=== PATIENT | male | born 1965 | race Caucasian/White ===

== ENCOUNTER → 2018-07-21 08:58 | Outpatient (CLI) | payer OTHER, MEDICAID, SELFPAY | PROVIDERS: PCP Family Medicine; Visit Provider Family Medicine | DX: R05 Cough (principal) ==

== ENCOUNTER → 2018-07-21 09:06 | Outpatient (CLI) | payer OTHER, MEDICAID, SELFPAY ==
--- NOTE | 2018-07-21 | DI.RAD.S_ITS ---
PROCEDURE: XR CHEST 2V INDICATIONS: COUGH TECHNIQUE: 2 views of the chest were acquired. COMPARISON: None. FINDINGS: Surgical changes and devices: None. Lungs and pleura: Lungs are clear. No pleural effusions or pneumothorax. Mediastinum: Mediastinal contours are normal. Heart size is normal. Bones and chest wall: No suspicious bony abnormalities. Soft tissues appear unremarkable. IMPRESSION: No acute disease Dictated by: Gaurang Segura M.D. on 07/21/2018 at 11:07 Approved by: Gaurang Segrua M.D. on 07/21/2018 at 11:09
== END ==
PROVIDERS: PCP Family Medicine; Visit Provider Family Medicine
DX: R05 Cough (principal)
CPT/HCPCS: 71046

== ENCOUNTER → 2018-10-23 14:10 | Outpatient (CLI) | payer OTHER, MEDICAID, SELFPAY ==
--- NOTE | 2018-10-23 | DI.CT.S_ITS ---
PROCEDURE: CT CHEST WO CON INDICATIONS: Centrilobular emphysema TECHNIQUE: Noncontrast 5 mm thick sections acquired from the pulmonary apices to the posterior costophrenic angles. 1 mm lung window, 5 mm thick coronal and sagittal and 7 mm axial MIP reformats were then acquired. For radiation dose reduction, the following was used: automated exposure control, adjustment of mA and/or kV according to patient size. COMPARISON: None. FINDINGS: Image quality: Excellent. Lungs and pleura: No acute air consolidative opacities. Bilateral lower lobe scarring/atelectasis. There is bilateral upper lobe centrilobular and paraseptal emphysema No pleural effusions or pneumothorax. Central and peripheral airways are patent and normal in caliber. Mediastinum: Heart size is normal. No pericardial effusion. No mediastinal adenopathy by size criteria. Thoracic aorta and central pulmonary arteries are normal in size. Esophagus is normal in caliber. No hiatal hernia. Bones and chest wall: No suspicious bony lesions. No vertebral body compression fractures. No axillary or supraclavicular adenopathy by size criteria. Thyroid gland negative. Abdomen: Visualized upper abdominal solid organs and bowel loops appear normal in the absence of contrast. IMPRESSION: Severe emphysema. Bilateral lower lobe scarring/atelectasis No acute disease. Dictated by: Gaurang Segura M.D. on 10/23/2018 at 17:15 Approved by: Gaurang Segura M.D. on 10/23/2018 at 17:19
== END ==
PROVIDERS: PCP Family Medicine; Visit Provider Family Medicine
DX: J43.2 Centrilobular emphysema (principal)
CPT/HCPCS: 71250

== ENCOUNTER → 2019-01-22 13:06 | Outpatient (CLI) | payer OTHER, MEDICAID, SELFPAY ==
--- NOTE | 2019-01-22 | DI.MRI.S_ITS ---
PROCEDURE: MR STROKE Pre- and post-contrast brain MRI, non-contrast brain MR angiogram, pre- and postcontrast neck MR angiogram INDICATIONS: NAUSEA, HEREDITARY ATAXIA TECHNIQUE: Brain: Noncontrast axial T1 spin echo, axial T2 fast spin echo, sagittal and axial FLAIR, coronal T2 fast spin echo, axial gradient echo, axial diffusion and ADC through the brain. After the administration of contrast, axial 3D VIBE of the cranial vasculature and brain. Brain MRA: Non-contrast 3-D time of flight MR angiogram, with multiple ttsxlpu-dmaldecqk-ggdebvjywg (MIP) reformats performed. Neck MRA: Axial and sagittal TruFISP through the neck. Coronal dynamic MR angiogram during administration of contrast in the arterial and venous phases, with 3-dimenstional dntlujk-oknvrekvl-rsbulqvecx (MIP) reformats constructed from subtraction images. COMPARISON: None. FINDINGS: Image quality: Excellent. BRAIN: CSF spaces: Ventricles are normal in size and shape. Basal cisterns are patent. No extra-axial fluid collections. Brain: No intracranial bleeds or mass effects. Mantilla-white matter interface is normal. Scattered foci of T2 hyperintensity can be seen within the periventricular and the deep white matter. Diffusion weighted images show no acute ischemic insults. Brainstem appears normal. Normal intravascular flow voids are present. No abnormal intracranial enhancement. Skull and face: Calvarial marrow signal is normal. Orbits appear normal. Sinuses: There is a mucus retention cyst seen involving the lateral aspect of the left inferior maxillary sinus. Sinuses and mastoids are otherwise clear. BRAIN MR ANGIOGRAM: Anterior circulation: Intracranial internal carotid arteries are normal in size and enhancement. The flow within the paired anterior cerebral arteries is normal and symmetric. Incidental note is made of an accessory anterior cerebral artery branch, which arises from the anterior communicating artery. The flow within the middle cerebral arteries is normal and symmetric. The anterior communicating artery is seen. No stenoses, occlusions, or aneurysms. Posterior circulation: The visualized portions of the vertebral arteries demonstrate normal caliber, and join to form a normal appearing basilar artery. The flow within the posterior cerebral arteries is normal and symmetric. No stenoses, occlusions, or aneurysms. NECK MR ANGIOGRAM: Carotids: Great vessels demonstrate a conventional anatomy as they arise from the aortic arch. The origins of the common carotid arteries appear patent. The calibers and courses of both common carotid arteries are normal. The bifurcation regions appear normal bilaterally. The internal carotid arteries demonstrate normal caliber. Mild tortuosity is seen of the internal carotid arteries, left more prominent than right. Posterior circulation: The origins of the vertebral arteries appear patent. More superior portions of both vertebral arteries demonstrate normal course and caliber, and join to form a normal appearing basilar artery. Miscellaneous: Subclavian arteries appear patent. Pre-contrast images through the neck show no soft tissue abnormalities. IMPRESSION: BRAIN MRI: No findings of acute or subacute infarction can be seen. Premature chronic small vessel ischemic change. No masses or abnormal enhancement can be seen. BRAIN MR ANGIOGRAM: No significant intracranial arterial abnormality is seen. NECK MR ANGIOGRAM: Within the arteries of the neck, no hemodynamically significant stenosis can be seen. Dictated by: Augustus Bethea M.D. on 01/22/2019 at 13:28 Approved by: Augustus Bethea M.D. on 01/22/2019 at 13:31
== END ==
PROVIDERS: PCP Family Medicine; Visit Provider Family Medicine
DX: G11.9 Hereditary ataxia, unspecified (principal); R11.0 Nausea
CPT/HCPCS: 70548; 70553; A9579

== ENCOUNTER → 2020-09-18 12:33 | Outpatient (CLI) | payer OTHER, MEDICAID, SELFPAY ==
[2020-09-18 20:33] LABS: COVID19 - ORCAS (NP or Nasal) Negative (Negative)
== END ==
PROVIDERS: PCP Family Medicine; Visit Provider Family Medicine
DX: Z20.822 Contact with and (suspected) exposure to COVID-19 (principal)
CPT/HCPCS: U0003

== ENCOUNTER → 2020-10-16 14:47 | Outpatient (CLI) | payer OTHER, MEDICAID, SELFPAY ==
[2020-10-16 20:08] LABS: COVID19 - ORCAS (NP or Nasal) Negative (Negative)
== END ==
PROVIDERS: PCP Family Medicine; Referring Provider Physician Assistant; Visit Provider Physician Assistant
DX: Z20.822 Contact with and (suspected) exposure to COVID-19 (principal)
CPT/HCPCS: C9803; U0003

== ENCOUNTER → 2020-12-06 10:18 | Outpatient (CLI) | payer OTHER, MEDICAID, SELFPAY ==
[2020-12-06 21:08] LABS: COVID19 - ORCAS (NP or Nasal) Negative (Negative)
== END ==
PROVIDERS: PCP Family Medicine; Referring Provider Physician Assistant Medical; Visit Provider Physician Assistant Medical
DX: Z20.822 Contact with and (suspected) exposure to COVID-19 (principal)
CPT/HCPCS: U0003

== ENCOUNTER → 2021-03-20 11:33 | Outpatient (CLI) | payer OTHER, MEDICAID, SELFPAY ==
[2021-03-20 19:01] LABS: Add Manual Diff / Slide Review NO; Basophils Absolute Auto 100 /uL (0-100); Basophils Percent Auto 0.8 % (0-2); Eosinophils Absolute Auto 100 /uL (0-450); Eosinophils Percent Auto 0.8 % (2-4); Hematocrit 45.5 % (41-53); Hemoglobin 15.7 g/dL (13.5-17.5); Lymphocytes Absolute Auto 2600 /uL (1100-4500); Lymphocytes Percent Auto 28.6 % (25-40); Mean Corpuscular HGB Conc 34.4 % (30-36); Mean Corpuscular Hemoglobin 31.8 PG (26-34); Mean Corpuscular Volume 92.4 fL (80-100); Monocytes Absolute Auto 600 /uL (0-900); Monocytes Percent Auto 6.3 % (3-14); Neutrophils Absolute Auto 5700 /uL (1500-7000); Neutrophils Percent Auto 63.5 % (50-75); Platelet Count 254 X10^3/uL (150-400); Red Blood Cell Count 4.93 X10^6/uL (4.5-5.9); Red Cell Distribution Width 12.7 % (11.6-14.8)
[2021-03-20 19:25] LABS: Alanine Aminotransferase 30 IU/L (<50); Albumin 4.5 g/dL (3.5-5.0); Albumin Globulin Ratio 1.6 (1.0-2.8); Alkaline Phosphatase 63 U/L (38-126); Aspartate Aminotransferase 23 IU/L (17-59); BUN Creatinine Ratio 15.3 (6-22); Bilirubin Total 0.6 mg/dL (0.2-1.3); Blood Urea Nitrogen 15 mg/dL (9-20); Calcium 9.9 mg/dL (8.4-10.2); Carbon Dioxide 28 mmol/L (22-32); Chloride 104 mmol/L (98-107); Cholesterol 272 mg/dL (140-199); Estimated Glomerular Filt Rate > 60.0 mL/min (>60); Globulin 2.9 g/dL (1.7-4.1); Glucose 101 mg/dL (70-100); HDL Cholesterol 40 mg/dL (40-60); HEMOLYSIS < 15 (0-50); LDL Cholesterol Calculated 199 mg/dL (<100); Potassium 4.4 mmol/L (3.4-5.1); Sodium 138 mmol/L (137-145); Total Protein 7.4 g/dL (6.3-8.2); Triglycerides 165 mg/dL (35-150)
[2021-03-20 19:55] LABS: Prostate Specific Antigen Scrn 0.915 ng/mL (0.1-4.0)
== END ==
PROVIDERS: Visit Provider Physician Assistant
DX: E78.5 Hyperlipidemia, unspecified (principal); H61.20 Impacted cerumen, unspecified ear; H61.92 Disorder of left external ear, unspecified; I25.2 Old myocardial infarction; Z00.01 Encounter for general adult medical examination with abnormal findings; Z12.11 Encounter for screening for malignant neoplasm of colon; Z12.5 Encounter for screening for malignant neoplasm of prostate; Z79.899 Other long term (current) drug therapy
CPT/HCPCS: 80053; 80061; 85025; G0103

== ENCOUNTER → 2022-01-31 09:28 | Outpatient (CLI) | payer OTHER, MEDICAID, SELFPAY ==
[2022-01-31 19:03] LABS: Alanine Aminotransferase 35 IU/L (<50); Albumin 4.2 g/dL (3.5-5.0); Albumin Globulin Ratio 1.5 (1.0-2.8); Alkaline Phosphatase 72 U/L (38-126); Aspartate Aminotransferase 28 IU/L (17-59); Bilirubin Total 0.5 mg/dL (0.2-1.3); Blood Urea Nitrogen 15 mg/dL (9-20); Calcium 9.1 mg/dL (8.4-10.2); Carbon Dioxide 29 mmol/L (22-32); Chloride 103 mmol/L (98-107); Cholesterol 187 mg/dL (140-199); Estimated Glomerular Filt Rate > 60 mL/min (>60); Globulin 2.8 g/dL (1.7-4.1); Glucose 89 mg/dL (70-100); HDL Cholesterol 42 mg/dL (40-60); HEMOLYSIS < 15 (0-50); LDL Cholesterol Calculated 126 mg/dL (<100); Potassium 4.2 mmol/L (3.4-5.1); Sodium 138 mmol/L (137-145); Triglycerides 93 mg/dL (35-150)
== END ==
PROVIDERS: PCP Physician Assistant; Visit Provider Physician Assistant
DX: E78.5 Hyperlipidemia, unspecified (principal)
CPT/HCPCS: 80053; 80061

== ENCOUNTER → 2022-02-27 13:22 | Outpatient (CLI) | payer OTHER, MEDICAID, SELFPAY ==
--- NOTE | 2022-02-27 13:23 | DI.US.S_ITS ---
PROCEDURE: US CAROTID DOPPLER BI INDICATIONS: CALCIFICATIONS ON 12/26/21 C SPINE X-RAY TECHNIQUE: Color and pulse Doppler interrogation was performed of both carotid systems, with image documentation and velocity measurements. COMPARISON: None. FINDINGS: Stenosis calculations are based on SRU (Society of Radiologists in Ultrasound) criteria. Right side: Brachial blood pressure: 127/80 mm Hg. Common carotid artery peak systolic velocity: 125 cm/sec. Internal carotid artery peak systolic velocity: 87 cm/sec. Internal carotid artery end diastolic velocity: 43 cm/sec. External carotid artery peak systolic velocity: 82 cm/sec. ICA/CCA peak systolic ratio: 0.7 . Mantilla scale imaging description: Mild atheromatous plaque at the carotid bifurcation Percent internal carotid artery stenosis: Less than 50% stenosis. Vertebral artery: Flow direction is antegrade. Left side: Brachial blood pressure: 135/87 mm Hg. Common carotid artery peak systolic velocity: 120 cm/sec. Internal carotid artery peak systolic velocity: 73 cm/sec. Internal carotid artery end diastolic velocity: 32 cm/sec. External carotid artery peak systolic velocity: 74 cm/sec. ICA/CCA peak systolic ratio: 0.6 . Mantilla scale imaging description: No atheromatous plaque or calcification Percent internal carotid artery stenosis: No stenosis of the internal carotid artery. Vertebral artery: Flow direction is antegrade. IMPRESSION: Less than 50% stenosis of the right internal carotid artery. No sonographic evidence for stenosis of the left internal carotid artery. Dictated by: Linsey Altamirano M.D. on 02/27/2022 at 14:13 Approved by: Linsey Altamirano M.D. on 02/27/2022 at 14:14
== END ==
PROVIDERS: PCP Physician Assistant; Referring Provider Physician Assistant; Visit Provider Physician Assistant
DX: Z13.6 Encounter for screening for cardiovascular disorders (principal); I25.2 Old myocardial infarction; I65.21 Occlusion and stenosis of right carotid artery
CPT/HCPCS: 93880

== ENCOUNTER → 2022-03-05 10:42 | Outpatient (CLI) | payer OTHER, MEDICAID, SELFPAY ==
[2022-03-05 11:13] LABS: COVID19 -Nasal RAPID Negative (Negative)
== END ==
PROVIDERS: PCP Physician Assistant; Visit Provider Surgery
DX: Z01.812 Encounter for preprocedural laboratory examination (principal); Z20.822 Contact with and (suspected) exposure to COVID-19
CPT/HCPCS: 87635

== ENCOUNTER 2022-03-05 10:44 | Day surgery (SDC) | payer OTHER, MEDICAID, SELFPAY ==
--- NOTE | 2022-03-05 | PATH_ITS ---
[facility] Accession Number: [id number] . 01 Material submitted: . rectum - RECTUM . 01 Diagnosis: Rectum, Biopsy: Hyperplastic polyp. HARISH 03/07/2022 1131 Local . 01 Electronically signed: . Thu Estrada MD, Pathologist NPI- [id number] . 01 Gross description: . RECTUM: Received in formalin are 2 fragment(s) of li, soft tissue measuring 0.3 x 0.2 x 0.2 cm to 0.2 x 0.2 x 0.1 cm submitted entirely in 1 cassette(s) /CPE 03/06/2022 0859 Local . 01 Pathologist provided ICD-10: K62.1 . 01 CPT . 089034 Specimen Comment: A courtesy copy of this report has been sent to [phone] Performed at: 01 [facility] [address] [place] [address], [place], [place] [id number] MD Tee Reyna MD Phone: [phone]
[2022-03-05 11:15] VITALS: BP 118/74; PULSE 61; RESP 16; TEMP 36.4; O2SAT 100; BMI 28.1
[2022-03-05] MEDS: LACTATED RINGERS 1,000 ML 200 ML IV (11:28)
--- NOTE | 2022-03-05 12:31 | PM.HP.1 ---
History of Present Illness History of Present Illness Date Patient Seen: 03/05/22 Time Patient Seen: 12:32 Chief complaint: SDC Narrative: The patient presents for colorectal screening. They have never had any previous examination for such. No personal or family history of colon cancer. On further history denies any recent gastrointestinal symptoms. No nausea, vomiting, abdominal pain, loss of appetite, unexplained weight loss, change in bowel habits, or blood per rectum. Patient History Medical History Abnormal laboratory test Alcoholism in recovery Body mass index (BMI) exceeds 25 COPD (chronic obstructive pulmonary disease) (~2018) Cough COVID-19 (~01/2019) Encounter for screening for colorectal malignant neoplasm Encounter for tobacco use cessation counseling H/O myocardial perfusion scan (~01/06/14) Pre-procedural examination Routine health maintenance Surgical History Anesthesia History of coronary artery stent placement (~2019) History of herniorrhaphy (~2006) History of rhinoplasty (~1998) Family & Social History Family History Father History of heart disease Mother Multiple sclerosis Grandmother Congestive heart failure Grandfather History of heart disease Social History: household members none Tobacco & Substance use: Smoking Status Current some day smoker alcohol intake never Substance Use Type does not use Meds Home Medications and Allergies Home Medications Medication Instructions Recorded Confirmed Type aspirin 81 mg tablet,delayed 81 mg PO DAILY 08/02/20 03/05/22 History release levalbuterol tartrate 45 2 puff inhalation Q4-6H PRN 08/02/20 03/05/22 History mcg/actuation aerosol inhaler Bronchospasm (Xopenex HFA) nitroglycerin 0.4 mg sublingual 0.4 mg sublingual Q5-15M PRN Chest 08/02/20 03/05/22 History tablet Pain atorvastatin 10 mg tablet 10 mg PO BEDTIME #90 tabs 02/04/22 03/05/22 Rx Allergies Allergy/AdvReac Type Severity Reaction Status Date / Time No Known Drug Allergies Allergy Verified 03/05/22 11:12 Exam Vital Signs (past 8 hours): - 03/05/22 11:15 Temperature 97.5 F L Pulse Rate 61 Respiratory Rate 16 Blood Pressure 118/74 Pulse Oximetry 100 Oxygen Delivery Method Room Air Oxygen Delivery Method Room Air Narrative Exam Narrative: General adult male alert oriented no acute distress Abdomen soft nontender nondistended Assessment & Plan Assessment & Plan narrative: The patient requires colorectal screening and colonoscopy is recommended. Technical details were discussed. Risks, benefits, alternatives explained. Risks including but not limited to myocardial infarction, aspiration, bleeding, pain, missed lesion, incomplete examination, need for further radiographic studies, colonic perforation, and need for major abdominal surgery were discussed. All questions were answered to their satisfaction, and they are in agreement with this plan. Time Spent With Patient Critical Care time: I spent a total of [] minutes of critical care time on this patient's care today; this time is exclusive of procedural time.
--- NOTE | 2022-03-05 12:53 | PM.OP.COLON ---
Operative Date/Time/Diagnoses Date of procedure: 03/05/22 Time of procedure: 12:53 Pre-op diagnosis: Screening colonoscopy Post-op diagnosis: same Procedure & Clinicians Study performed: Colonoscopy Same procedure as scheduled: Yes Indications: Colorectal screening Surgeon: Quincy No Procedure Notes Procedure in detail: The history and physical was performed/updated and the patient is ASA class is 3. The procedure was discussed in detail with the patient. Potential risks complications including infection, bleeding, missed diagnosis, perforation, need for surgery, and were explained. Their questions were answered and informed consent was obtained. Patient was brought to the procedure room and placed standard monitoring equipment. The patient's vital signs were monitored continuously throughout the entire procedure. Prior to starting time-out was performed. The patient was placed in the left lateral recumbent position. Procedural sedation was administered by anesthesia. Examination began with a thorough inspection of the perianal area there was no evidence of fissures, fistulae, external hemorrhoids or cutaneous malignancy. The colonoscopy scope was then placed into the anal canal and was advanced to the cecum, which was identified by the ileocecal valve, the appendiceal orifice and the confluence of the taenia. The scope was then slowly withdrawn examining colon thoroughly in all directions, irrigating it of any residual stool. FINDINGS 1. Rectum-3 mm polyp removed with biopsy forceps 2. No masses or inflammation The patient tolerated the procedure well. They will be discharged once criteria are met. The prep was of good/excellent quality. The withdrawl time was 6 minutes. Specimen(s): other (Rectal polyp) Complications: none Impression: Colonic polyp Post-procedure Recommendations: High fiber diet Plan for aftercare: Follow-up dependent on pathology finding Disposition: same day surgery
[2022-03-05 12:55] VITALS: BP 152/75; PULSE 61; RESP 18; TEMP 36.8; O2SAT 98
[2022-03-05 13:06] VITALS: BP 110/75; PULSE 60; RESP 16; TEMP 36.8; O2SAT 98
[2022-03-05 13:16] VITALS: BP 124/75; PULSE 62; RESP 12; TEMP 36.3; O2SAT 97
== END 2022-03-05 13:30 | disposition home or self-care (01) ==
PROVIDERS: PCP Physician Assistant; Referring Provider Surgery; Visit Provider Surgery
PROC: 0DJD8ZZ Inspection of Lower Intestinal Tract, Via Natural or Artificial Opening Endoscopic (ICD-10-PCS; CPT 45378; principal; 2022-03-05 11:45)
DX: Z12.11 Encounter for screening for malignant neoplasm of colon (principal); J44.9 Chronic obstructive pulmonary disease, unspecified; K62.1 Rectal polyp; Z01.812 Encounter for preprocedural laboratory examination; Z20.822 Contact with and (suspected) exposure to COVID-19
CPT/HCPCS: 45380; 87635; C9803; J2704

== ENCOUNTER → 2022-04-17 09:42 | Outpatient (CLI) | payer OTHER, MEDICAID, SELFPAY ==
[2022-04-17 19:44] LABS: Add Manual Diff / Slide Review NO; Alanine Aminotransferase 31 IU/L (<50); Albumin 4.3 g/dL (3.5-5.0); Albumin Globulin Ratio 1.5 (1.0-2.8); Alkaline Phosphatase 66 U/L (38-126); Aspartate Aminotransferase 26 IU/L (17-59); BUN Creatinine Ratio 21.7 (6-22); Basophils Absolute Auto 100 /uL (0-100); Basophils Percent Auto 0.6 % (0-2); Bilirubin Total 0.4 mg/dL (0.2-1.3); Blood Urea Nitrogen 20 mg/dL (9-20); Calcium 9.3 mg/dL (8.4-10.2); Carbon Dioxide 25 mmol/L (22-32); Chloride 104 mmol/L (98-107); Cholesterol 161 mg/dL (140-199); Eosinophils Absolute Auto 200 /uL (0-450); Eosinophils Percent Auto 1.6 % (2-4); Estimated Glomerular Filt Rate > 60 mL/min (>60); Globulin 2.8 g/dL (1.7-4.1); Glucose 93 mg/dL (70-100); HDL Cholesterol 35 mg/dL (40-60); HEMOLYSIS < 15 (0-50); Hematocrit 47.2 % (41-53); LDL Cholesterol Calculated 104 mg/dL (<100); Lymphocytes Absolute Auto 3900 /uL (1100-4500); Mean Corpuscular HGB Conc 33.9 % (30-36); Mean Corpuscular Hemoglobin 31.4 PG (26-34); Mean Corpuscular Volume 92.6 fL (80-100); Monocytes Absolute Auto 700 /uL (0-900); Monocytes Percent Auto 7.3 % (3-14); Neutrophils Absolute Auto 5200 /uL (1500-7000); Neutrophils Percent Auto 51.5 % (50-75); Platelet Count 251 X10^3/uL (150-400); Potassium 4.4 mmol/L (3.4-5.1); Sodium 136 mmol/L (137-145); Total Protein 7.1 g/dL (6.3-8.2); Triglycerides 112 mg/dL (35-150)
== END ==
PROVIDERS: PCP Physician Assistant; Visit Provider Physician Assistant
DX: E78.5 Hyperlipidemia, unspecified (principal); M79.10 Myalgia, unspecified site; R53.83 Other fatigue; K21.00 Gastro-esophageal reflux disease with esophagitis, without bleeding; R53.82 Chronic fatigue, unspecified; Z79.899 Other long term (current) drug therapy
CPT/HCPCS: 80053; 80061; 84443; 85025

== ENCOUNTER → 2022-07-01 11:23 | Outpatient (CLI) | payer OTHER, MEDICAID, SELFPAY ==
[2022-07-01 19:32] LABS: Add Manual Diff / Slide Review NO; Basophils Absolute Auto 100 /uL (0-100); Basophils Percent Auto 0.9 % (0-2); Eosinophils Absolute Auto 200 /uL (0-450); Eosinophils Percent Auto 1.7 % (2-4); Hematocrit 44.5 % (41-53); Hemoglobin 15.2 g/dL (13.5-17.5); Lymphocytes Absolute Auto 3700 /uL (1100-4500); Lymphocytes Percent Auto 41.2 % (25-40); Mean Corpuscular HGB Conc 34.1 % (30-36); Mean Corpuscular Hemoglobin 31.2 PG (26-34); Mean Corpuscular Volume 91.5 fL (80-100); Monocytes Absolute Auto 700 /uL (0-900); Monocytes Percent Auto 7.5 % (3-14); Neutrophils Absolute Auto 4400 /uL (1500-7000); Neutrophils Percent Auto 48.7 % (50-75); Platelet Count 258 X10^3/uL (150-400); Red Blood Cell Count 4.86 X10^6/uL (4.5-5.9); Red Cell Distribution Width 13.1 % (11.6-14.8)
[2022-07-01 19:41] LABS: Alanine Aminotransferase 37 IU/L (<50); Albumin 4.5 g/dL (3.5-5.0); Albumin Globulin Ratio 1.6 (1.0-2.8); Alkaline Phosphatase 87 U/L (38-126); Aspartate Aminotransferase 28 IU/L (17-59); BUN Creatinine Ratio 19.8 (6-22); Bilirubin Total 0.3 mg/dL (0.2-1.3); Blood Urea Nitrogen 20 mg/dL (9-20); Calcium 9.4 mg/dL (8.4-10.2); Carbon Dioxide 25 mmol/L (22-32); Chloride 104 mmol/L (98-107); Estimated Glomerular Filt Rate > 60 mL/min (>60); Globulin 2.8 g/dL (1.7-4.1); Glucose 91 mg/dL (70-100); HEMOLYSIS < 15 (0-50); Potassium 4.5 mmol/L (3.4-5.1); Sodium 139 mmol/L (137-145); Total Protein 7.3 g/dL (6.3-8.2)
[2022-07-01 19:50] LABS: NT-proBNP (BNP-Adult 18+) 23 pg/mL (<125)
[2022-07-01 19:56] LABS: Erythrocyte Sedimentation Rate 3 MM/HR (0-15)
== END ==
PROVIDERS: PCP Physician Assistant; Visit Provider Physician Assistant
DX: R60.9 Edema, unspecified (principal); R06.02 Shortness of breath; L29.9 Pruritus, unspecified; J44.9 Chronic obstructive pulmonary disease, unspecified; E78.2 Mixed hyperlipidemia; Z79.899 Other long term (current) drug therapy
CPT/HCPCS: 80053; 83880; 85025; 85651

== ENCOUNTER → 2022-07-18 10:27 | Outpatient (CLI) | payer OTHER, MEDICAID, SELFPAY ==
[2022-07-18 19:31] LABS: Alanine Aminotransferase 33 IU/L (<50); Albumin 4.2 g/dL (3.5-5.0); Albumin Globulin Ratio 1.5 (1.0-2.8); Alkaline Phosphatase 69 U/L (38-126); Aspartate Aminotransferase 27 IU/L (17-59); BUN Creatinine Ratio 13.1 (6-22); Bilirubin Total 0.7 mg/dL (0.2-1.3); Blood Urea Nitrogen 14 mg/dL (9-20); Calcium 9.1 mg/dL (8.4-10.2); Carbon Dioxide 26 mmol/L (22-32); Chloride 104 mmol/L (98-107); Cholesterol 250 mg/dL (140-199); Estimated Glomerular Filt Rate > 60 mL/min (>60); Globulin 2.8 g/dL (1.7-4.1); Glucose 89 mg/dL (70-100); HDL Cholesterol 35 mg/dL (40-60); HEMOLYSIS < 15 (0-50); LDL Cholesterol Calculated 166 mg/dL (<100); Potassium 4.7 mmol/L (3.4-5.1); Sodium 137 mmol/L (137-145); Triglycerides 245 mg/dL (35-150)
== END ==
PROVIDERS: PCP Physician Assistant; Visit Provider Physician Assistant
DX: E78.2 Mixed hyperlipidemia (principal); Z79.899 Other long term (current) drug therapy; J44.9 Chronic obstructive pulmonary disease, unspecified; L29.9 Pruritus, unspecified; R06.02 Shortness of breath; R60.9 Edema, unspecified
CPT/HCPCS: 80053; 80061

== ENCOUNTER → 2022-07-24 09:01 | Outpatient (CLI) | payer OTHER, MEDICAID, SELFPAY ==
[2022-07-24 20:18] LABS: Add Manual Diff / Slide Review NO; Basophils Absolute Auto 0 /uL (0-100); Basophils Percent Auto 0.5 % (0-2); Eosinophils Absolute Auto 100 /uL (0-450); Eosinophils Percent Auto 1.5 % (2-4); HEMOLYSIS < 15 (0-50); Hematocrit 44.8 % (41-53); Hemoglobin 15.2 g/dL (13.5-17.5); Iron 150 ug/dL (49-181); Lymphocytes Absolute Auto 4100 /uL (1100-4500); Lymphocytes Percent Auto 42.9 % (25-40); Mean Corpuscular HGB Conc 33.9 % (30-36); Mean Corpuscular Hemoglobin 31.3 PG (26-34); Mean Corpuscular Volume 92.4 fL (80-100); Monocytes Absolute Auto 600 /uL (0-900); Monocytes Percent Auto 6.7 % (3-14); Neutrophils Absolute Auto 4600 /uL (1500-7000); Neutrophils Percent Auto 48.4 % (50-75); Platelet Count 267 X10^3/uL (150-400); Red Blood Cell Count 4.85 X10^6/uL (4.5-5.9); Red Cell Distribution Width 13.2 % (11.6-14.8); White Blood Cell Count 9.5 X10^3/uL (4.5-11.0)
[2022-07-24 20:26] LABS: Alanine Aminotransferase 39 IU/L (<50); Albumin 4.2 g/dL (3.5-5.0); Albumin Globulin Ratio 1.5 (1.0-2.8); Alkaline Phosphatase 72 U/L (38-126); Aspartate Aminotransferase 27 IU/L (17-59); Bilirubin Total 0.4 mg/dL (0.2-1.3); Blood Urea Nitrogen 14 mg/dL (9-20); Calcium 9.2 mg/dL (8.4-10.2); Carbon Dioxide 26 mmol/L (22-32); Chloride 104 mmol/L (98-107); Estimated Glomerular Filt Rate > 60 mL/min (>60); Globulin 2.8 g/dL (1.7-4.1); Glucose 94 mg/dL (70-100); HEMOLYSIS < 15 (0-50); Potassium 4.3 mmol/L (3.4-5.1); Sodium 138 mmol/L (137-145)
[2022-07-24 20:29] LABS: Percent Iron Saturation 44 % (20-50); Total Iron Binding Capacity 343 ug/dL (261-462); Transferrin 259 mg/dL (206-381)
[2022-07-24 20:30] LABS: Cholesterol 220 mg/dL (140-199); HDL Cholesterol 36 mg/dL (40-60); LDL Cholesterol Calculated 135 mg/dL (<100); Triglycerides 244 mg/dL (35-150)
[2022-07-24 20:42] LABS: Vitamin D 25 Hydroxy (D3) 18.2 ng/mL (30.0-100.0)
[2022-07-24 20:56] LABS: Ferritin 114 ng/mL (18-464)
[2022-07-24 21:27] LABS: Folate 5.6 ng/mL (2.76-20.0); Vitamin B12 397 pg/mL (239-931)
[2022-07-25 22:03] LABS: Hep C Virus Ab w/Reflex Quant NEGATIVE s/c (NEGATIVE)
== END ==
PROVIDERS: PCP Physician Assistant; Visit Provider Physician Assistant
DX: L29.9 Pruritus, unspecified (principal); E78.2 Mixed hyperlipidemia
CPT/HCPCS: 80053; 80061; 82306; 82607; 82728; 82746; 83540; 83550; 85025; 86803

== ENCOUNTER → 2022-08-20 13:04 | Outpatient (CLI) | payer OTHER, MEDICAID, SELFPAY ==
[2022-08-20 19:22] LABS: Alanine Aminotransferase 50 IU/L (<50); Albumin 4.4 g/dL (3.5-5.0); Albumin Globulin Ratio 1.6 (1.0-2.8); Alkaline Phosphatase 77 U/L (38-126); Aspartate Aminotransferase 31 IU/L (17-59); BUN Creatinine Ratio 17.9 (6-22); Bilirubin Total 0.3 mg/dL (0.2-1.3); Blood Urea Nitrogen 19 mg/dL (9-20); Calcium 9.5 mg/dL (8.4-10.2); Carbon Dioxide 25 mmol/L (22-32); Chloride 104 mmol/L (98-107); Estimated Glomerular Filt Rate > 60 mL/min (>60); Globulin 2.8 g/dL (1.7-4.1); Glucose 98 mg/dL (70-100); HEMOLYSIS < 15 (0-50); Potassium 4.6 mmol/L (3.4-5.1); Sodium 138 mmol/L (137-145); Total Protein 7.2 g/dL (6.3-8.2)
[2022-08-20 19:30] LABS: Free T3, Triiodothyronine Free 4.22 pg/mL (2.77-5.27)
[2022-08-20 19:44] LABS: Thyroid Stimulating Hormone 3.28 uIU/mL (0.47-4.68)
[2022-08-20 19:47] LABS: Prostate Specific Antigen Scrn 0.651 ng/mL (0.1-4.0)
[2022-08-20 19:50] LABS: Testosterone 222 ng/dL (71.8-623)
[2022-08-20 19:59] LABS: Erythrocyte Sedimentation Rate 5 MM/HR (0-15)
[2022-08-27 07:10] LABS: Percent Free Testosterone 1.73 % (1.50-4.20); Testosterone Free 5.07 ng/dL (5.00-21.00); Testosterone Total 293.2 ng/dL (264.0-916.0)
== END ==
PROVIDERS: Physician Assistant; PCP Physician Assistant; Visit Provider Physician Assistant
DX: R53.82 Chronic fatigue, unspecified (principal); Z12.5 Encounter for screening for malignant neoplasm of prostate; M79.10 Myalgia, unspecified site; R60.9 Edema, unspecified; E55.9 Vitamin D deficiency, unspecified
CPT/HCPCS: 80053; 82306; 84402; 84403; 84439; 84443; 84481; 85651; G0103

== ENCOUNTER → 2022-08-26 15:57 | Outpatient (CLI) | payer OTHER, MEDICAID, SELFPAY ==
[2022-08-26 17:47] LABS: Alanine Aminotransferase 43 IU/L (<50); Albumin 4.3 g/dL (3.5-5.0); Albumin Globulin Ratio 1.5 (1.0-2.8); Alkaline Phosphatase 62 U/L (38-126); Aspartate Aminotransferase 40 IU/L (17-59); Bilirubin Total 0.4 mg/dL (0.2-1.3); Bilirubin Unconjugated 0.2 mg/dL (0.0-1.1); Globulin 2.8 g/dL (1.7-4.1); HEMOLYSIS < 15 (0-50); Total Protein 7.1 g/dL (6.3-8.2)
[2022-08-26 17:57] LABS: NT-proBNP (BNP-Adult 18+) 61 pg/mL (<125)
== END ==
PROVIDERS: PCP Physician Assistant; Referring Provider Physician Assistant; Visit Provider Physician Assistant
DX: R60.9 Edema, unspecified (principal); R74.8 Abnormal levels of other serum enzymes
CPT/HCPCS: 36415; 80076; 83880

== ENCOUNTER → 2022-09-10 09:57 | Outpatient (CLI) | payer OTHER, MEDICAID, SELFPAY ==
[2022-09-10 11:07] LABS: Erythrocyte Sedimentation Rate 5 MM/HR (0-15)
[2022-09-10 11:08] LABS: Creatine Kinase 263 U/L (55-170)
[2022-09-10 11:24] LABS: Free T4, Direct Thyroxine 0.81 ng/dL (0.78-2.19)
[2022-09-10 11:35] LABS: Cortisol AM (Before 10AM) 6.25 ug/dL (4.46-22.7)
--- NOTE | 2022-09-10 11:36 | DI.CT.S_ITS ---
PROCEDURE: CT ABDOMEN WWO PELVIS W INDICATIONS: abdominal distension/bloating. fatigue. elevated liver enzym TECHNIQUE: After the administration of oral contrast, 5 mm thick sections acquired from the diaphragms to the iliac crests. After the administration of intravenous contrast, 5 mm thick sections acquired from the diaphragms to the symphysis. 5 mm thick coronal and sagittal reformats were acquired. For radiation dose reduction, the following was used: automated exposure control, adjustment of mA and/or kV according to patient size. COMPARISON: [facility], CT, CT CHEST WO CON, 10/23/2018, 14:11. FINDINGS: Image quality: Excellent. ABDOMEN: Lung bases: Lung bases are clear. Heart size is normal. Small hiatal hernia. Solid organs: Liver is normal in size and enhancement. Small benign cyst in the left lobe of the liver. Gallbladder is unremarkable. Biliary system is non-dilated. Pancreas enhances normally. Spleen is normal in size and enhancement. No adrenal nodules. Both kidneys are normal in size. No hydronephrosis or nephrolithiasis. Tiny benign cysts in the kidneys. Bowel and peritoneum: Stomach, small and large bowel loops are normal in caliber and wall thickness. Small duodenal diverticulum. The appendix is not dilated. No free fluid or air. Nodes and vessels: No retroperitoneal or mesenteric adenopathy by size criteria. Aortic ectasia. Aorta measures 2.5 cm. Miscellaneous: Tiny umbilical hernia. PELVIS: Genitourinary: Bladder wall thickness is normal. Miscellaneous: Possible small fat containing inguinal hernias. No adenopathy. Bones: No suspicious bony lesions. No vertebral body compression fractures. IMPRESSION: 1. New small hiatal hernia. 2. No bowel obstruction. No free fluid. 3. No mass or adenopathy. Dictated by: Eduardo Cole M.D. on 09/10/2022 at 16:08 Approved by: Eduardo Cole M.D. on 09/10/2022 at 16:16
[2022-09-10 11:38] LABS: TSH w/ Reflex to FT4 2.81 uIU/mL (0.47-4.68)
[2022-09-12 15:15] LABS: Albumin 3.7 g/dL (2.9-4.4); Alpha 1 Globulin 0.2 g/dL (0.0-0.4); Alpha 2 Globulin 0.7 g/dL (0.4-1.0); Protein, Total 6.5 g/dL (6.0-8.5)
[2022-09-13 10:09] LABS: Anti Mitochondrial ABY IGG <20.0 Units (0.0-20.0)
== END ==
PROVIDERS: Physician Assistant; PCP Physician Assistant; Referring Provider Physician Assistant; Visit Provider Physician Assistant
DX: K44.9 Diaphragmatic hernia without obstruction or gangrene (principal); K76.89 Other specified diseases of liver; K57.10 Diverticulosis of small intestine without perforation or abscess without bleeding; R14.0 Abdominal distension (gaseous); R74.8 Abnormal levels of other serum enzymes; L29.9 Pruritus, unspecified; R79.89 Other specified abnormal findings of blood chemistry; R53.82 Chronic fatigue, unspecified
CPT/HCPCS: 36415; 74178; 82533; 82550; 83516; 84155; 84165; 84439; 84443; 85651; Q9967

== ENCOUNTER → 2022-10-30 09:17 | Outpatient (CLI) | payer OTHER, MEDICAID, SELFPAY ==
[2022-10-30 10:34] LABS: Free T3, Triiodothyronine Free 3.14 pg/mL (2.77-5.27); Free T4, Direct Thyroxine 0.89 ng/dL (0.78-2.19)
[2022-10-30 10:47] LABS: TSH w/ Reflex to FT4 0.55 uIU/mL (0.47-4.68)
[2022-10-30 12:15] LABS: Add Manual Diff / Slide Review NO; Basophils Absolute Auto 0 /uL (0-100); Basophils Percent Auto 0.1 % (0-2); Eosinophils Absolute Auto 0 /uL (0-450); Hematocrit 45.4 % (41-53); Hemoglobin 15.4 g/dL (13.5-17.5); Lymphocytes Absolute Auto 1800 /uL (1100-4500); Lymphocytes Percent Auto 11.8 % (25-40); Mean Corpuscular Hemoglobin 31.1 PG (26-34); Mean Corpuscular Volume 91.5 fL (80-100); Monocytes Absolute Auto 400 /uL (0-900); Monocytes Percent Auto 2.4 % (3-14); Neutrophils Absolute Auto 12800 /uL (1500-7000); Neutrophils Percent Auto 85.7 % (50-75); Platelet Count 266 X10^3/uL (150-400); Red Blood Cell Count 4.96 X10^6/uL (4.5-5.9); Red Cell Distribution Width 12.1 % (11.6-14.8); White Blood Cell Count 14.9 X10^3/uL (4.5-11.0)
[2022-10-30 13:15] LABS: Alanine Aminotransferase 26 IU/L (<50); Albumin 4.6 g/dL (3.5-5.0); Albumin Globulin Ratio 1.5 (1.0-2.8); Alkaline Phosphatase 59 U/L (38-126); Aspartate Aminotransferase 27 IU/L (17-59); BUN Creatinine Ratio 22.1 (6-22); Bilirubin Total 0.5 mg/dL (0.2-1.3); Blood Urea Nitrogen 19 mg/dL (9-20); Calcium 9.5 mg/dL (8.4-10.2); Carbon Dioxide 22 mmol/L (22-32); Chloride 102 mmol/L (98-107); Estimated Glomerular Filt Rate > 60 mL/min (>60); Globulin 3.1 g/dL (1.7-4.1); Glucose 114 mg/dL (70-100); HEMOLYSIS 27 (0-50); Potassium 4.7 mmol/L (3.4-5.1); Sodium 137 mmol/L (137-145); Total Protein 7.7 g/dL (6.3-8.2)
[2022-10-30 13:42] LABS: Erythrocyte Sedimentation Rate 4 MM/HR (0-15)
[2022-10-31 08:11] LABS: Interpretation Negative (Negative)
[2022-11-04 01:36] LABS: Alder IgE <0.10 kU/L (Class 0); Almond IgE <0.10 kU/L (Class 0); Alternaria alternata IgE <0.10 kU/L (Class 0); Aspergillus fumigatus IgE <0.10 kU/L (Class 0); Box Elder IgE <0.10 kU/L (Class 0); Cashew Nut IgE <0.10 kU/L (Class 0); Cat Dander IgE <0.10 kU/L (Class 0); Cladosporium herbarum IgE <0.10 kU/L (Class 0); Cockroach IgE <0.10 kU/L (Class 0); Codfish Allergy IgE < 0.10 kU/L (Class 0); Cottonwood IgE <0.10 kU/L (Class 0); D farinae IgE <0.10 kU/L (Class 0); D pteronyssinus IgE <0.10 kU/L (Class 0); Dog Dander IgE <0.10 kU/L (Class 0); Egg White IgE <0.10 kU/L (Class 0); Elm Tree IgE <0.10 kU/L (Class 0); Hazelnut IgE <0.10 kU/L (Class 0); Immunoglobulin E 56 IU/mL (6-495); Milk IgE <0.10 kU/L (Class 0); Mountain Cedar IgE <0.10 kU/L (Class 0); Mouse Urine Proteins IgE <0.10 kU/L (Class 0); Nettle IgE <0.10 kU/L (Class 0); Oak Tree IgE <0.10 kU/L (Class 0); Peanut IgE <0.10 kU/L (Class 0); Penicillium chrysogen IgE <0.10 kU/L (Class 0); Pigweed, Common IgE <0.10 kU/L (Class 0); Ragweed, Short <0.10 kU/L (Class 0); Salmon Allergy IgE < 0.10 kU/L (Class 0); Scallop Allergy IgE < 0.10 kU/L (Class 0); Sesame seed Allergy IgE < 0.10 kU/L (Class 0); Sheep Sorrel IgE <0.10 kU/L (Class 0); Shrimp IgE <0.10 kU/L (Class 0); Silver Birch IgE <0.10 kU/L (Class 0); Soybean IgE <0.10 kU/L (Class 0); Tuna Allergy IgE < 0.10 kU/L (Class 0); Walnut Allery IgE < 0.10 kU/L (Class 0); Walnut IgE <0.10 kU/L (Class 0); Wheat Allergy IgE < 0.10 kU/L (Class 0); White ash IgE <0.10 kU/L (Class 0)
== END ==
PROVIDERS: PCP Physician Assistant; Referring Provider Physician Assistant; Visit Provider Physician Assistant
DX: L29.9 Pruritus, unspecified (principal); R79.89 Other specified abnormal findings of blood chemistry; D72.829 Elevated white blood cell count, unspecified
CPT/HCPCS: 36415; 80053; 82785; 83013; 84439; 84443; 84481; 85025; 85651; 86003

== ENCOUNTER → 2022-11-06 09:16 | Outpatient (CLI) | payer OTHER, MEDICAID, SELFPAY ==
[2022-11-06 11:11] LABS: Add Manual Diff / Slide Review NO; Basophils Absolute Auto 0 /uL (0-100); Basophils Percent Auto 0.5 % (0-2); Eosinophils Absolute Auto 100 /uL (0-450); Eosinophils Percent Auto 1.5 % (2-4); Hematocrit 44.1 % (41-53); Hemoglobin 15.1 g/dL (13.5-17.5); Lymphocytes Absolute Auto 3600 /uL (1100-4500); Lymphocytes Percent Auto 36.8 % (25-40); Mean Corpuscular HGB Conc 34.2 % (30-36); Mean Corpuscular Hemoglobin 31.4 PG (26-34); Mean Corpuscular Volume 91.8 fL (80-100); Monocytes Absolute Auto 600 /uL (0-900); Monocytes Percent Auto 6.3 % (3-14); Neutrophils Absolute Auto 5400 /uL (1500-7000); Neutrophils Percent Auto 54.9 % (50-75); Platelet Count 234 X10^3/uL (150-400); Red Cell Distribution Width 12.2 % (11.6-14.8); White Blood Cell Count 9.8 X10^3/uL (4.5-11.0)
[2022-11-06 11:34] LABS: Cholesterol 153 mg/dL (140-199); HDL Cholesterol 34 mg/dL (40-60); LDL Cholesterol Calculated 84 mg/dL (<100); Triglycerides 174 mg/dL (35-150)
== END ==
PROVIDERS: PCP Physician Assistant; Referring Provider Physician Assistant; Visit Provider Physician Assistant
DX: D72.829 Elevated white blood cell count, unspecified (principal); Z13.220 Encounter for screening for lipoid disorders
CPT/HCPCS: 36415; 80061; 85025

== ENCOUNTER → 2023-01-09 16:58 | Outpatient (CLI) | payer OTHER, MEDICAID, SELFPAY ==
[2023-01-09 18:03] LABS: Hemoglobin A1C% w Est Avg Glu 5.7 % (4.0-6.0)
[2023-01-09 18:10] LABS: Uric Acid 5.9 mg/dL (3.5-8.5)
[2023-01-09 18:25] LABS: Vitamin D 25 Hydroxy (D3) 33.1 ng/mL (30.0-100.0)
[2023-01-10 13:11] LABS: High Sensitivity CRP - Cardiac 1.9 mg/L (1.0-3.0)
[2023-01-11 08:17] LABS: Homocysteine 17.8 umol/L (0.0-14.5)
[2023-01-12 21:57] LABS: Zinc 61 ug/dL (44-115)
[2023-01-13 01:14] LABS: Selenium 158 ug/L (93-198)
== END ==
PROVIDERS: PCP Physician Assistant; Referring Provider Internal Medicine Cardiovascular Disease; Visit Provider Internal Medicine Cardiovascular Disease
DX: E88.810 Metabolic syndrome (principal); E78.41 Elevated Lipoprotein(a); E03.9 Hypothyroidism, unspecified; J43.9 Emphysema, unspecified; I22.1 Subsequent ST elevation (STEMI) myocardial infarction of inferior wall; Z13.0 Encounter for screening for diseases of the blood and blood-forming organs and certain disorders involving the immune mechanism; Z13.1 Encounter for screening for diabetes mellitus; Z13.228 Encounter for screening for other metabolic disorders; Z95.5 Presence of coronary angioplasty implant and graft
CPT/HCPCS: 36415; 82306; 83036; 83090; 84255; 84550; 84630; 86140

== ENCOUNTER 2023-01-09 17:40 | Emergency (ER) | payer OTHER, MEDICAID, SELFPAY ==
[2023-01-09 17:46] VITALS: BP 134/78; PULSE 65; RESP 20; TEMP 36.5; O2SAT 98; BMI 26.9
--- NOTE | 2023-01-09 19:02 | ED_ITS ---
HPI - Allergic Reaction <Feli Maldonado PA-C - Last Filed: 01/09/23 19:40> General Chief complaint: Allergic Reaction Stated complaint: empysema, flare up of white blood cells Time Seen by Provider: 01/09/23 18:05 Source: patient Mode of arrival: Ambulatory History of Present Illness HPI narrative: 57-year-old male with history of generalized pruritus and emphysema presents with concern for generalized itching. Patient states he has been dealing with this for about a year he is had extensive workups, labs and allergy testing with no specific answers found. Does also note that he has chronic emphysema and has had COVID and has a new provider who is currently doing further evaluation to try to determine the cause of his chronic and persistent itching symptoms. Patient states he gets flare-ups where his itching is a lot worse and troublesome, normally he takes Benadryl sometimes he has taken hydroxyzine and he is had a few short courses of steroid medications in the past year. The steroid medicines have really been the only thing that is helped to control his symptoms when they get severe. He states he never actually gets a noticeable rash when this happened he simply feels itchy all over the itching is more prominent around his abdomen area. He is here today hoping to get a short course of steroid medicine and possibly some hydroxyzine to help with his symptoms. Patient also notes he had a bunch of labs drawn today as ordered by his new provider but that he knows a CBC was not ordered, as he was not actively having a flare-up when he last saw the new provider but that they have been trying to track his white count when he gets flare-ups. He denies any other symptoms complaints or concerns. Related Data Home Medications Medication Instructions Recorded Confirmed aspirin 81 mg tablet,delayed 81 mg PO DAILY 08/02/20 10/30/22 release levalbuterol tartrate 45 2 puff inhalation Q4-6H PRN 08/02/20 10/30/22 mcg/actuation aerosol inhaler Bronchospasm (Xopenex HFA) nitroglycerin 0.4 mg sublingual 0.4 mg sublingual Q5-15M PRN Chest 08/02/20 10/30/22 tablet Pain maodqide-cswvemxni-hurhqhfjj 3.5 4 drp otic (ear) ONCE PRN ear wax 07/01/22 10/30/22 mg-10,000 unit/mL-1 % ear drops,susp Previous Rx's Medication Instructions Recorded hydroxyzine pamoate 25 mg capsule See Rx Instructions PO TID PRN 07/02/22 pruritis #21 caps atorvastatin 10 mg tablet 10 mg PO BEDTIME #90 tabs 07/23/22 cholecalciferol (vitamin D3) 1,250 1,250 mcg PO QWEEK #12 caps 07/27/22 mcg (50,000 unit) capsule gabapentin 300 mg capsule 300 mg PO TID #30 caps 09/04/22 levothyroxine 25 mcg capsule 25 mcg PO DAILY #30 caps 09/17/22 hydroxyzine HCl 50 mg tablet 50 mg PO QID PRN generalized 10/30/22 pruritis #30 tabs prednisone 10 mg tablet 10 mg PO DAILY generalized 10/30/22 pruritis #10 tabs hydroxyzine HCl 50 mg tablet 50 mg PO BEDTIME 2 weeks #14 tabs 01/09/23 prednisone 20 mg tablet 40 mg (2 x 20 mg) PO DAILY 5 days 01/09/23 #10 tabs Allergies Allergy/AdvReac Type Severity Reaction Status Date / Time No Known Drug Allergies Allergy Verified 01/09/23 17:54 Review of Systems <Feli Maldonado PA-C - Last Filed: 01/09/23 19:40> Review of Systems Narrative: See HPI Patient History <Feli Maldonado PA-C - Last Filed: 01/09/23 19:40> Medical History Need for hepatitis C screening test COPD (chronic obstructive pulmonary disease) (~2018) COVID-19 (~01/2019) H/O myocardial perfusion scan (~01/06/14) Abnormal laboratory test Encounter for tobacco use cessation counseling Cough Routine health maintenance Encounter for screening for colorectal malignant neoplasm Body mass index (BMI) exceeds 25 Alcoholism in recovery Pre-procedural examination Surgical History Anesthesia History of rhinoplasty (~1998) History of coronary artery stent placement (~2019) History of herniorrhaphy (~2006) Family History Father History of heart disease Mother Multiple sclerosis Grandmother Congestive heart failure Grandfather History of heart disease Social History household members: none Smoking Status: Former smoker alcohol intake: never Smoking Status: Former smoker Substance Use Type: does not use Exam <Feli Maldonado PA-C - Last Filed: 01/09/23 19:40> Narrative Exam Narrative: GENERAL: 57 year old patient appears stated age. Well-developed patient, in mild distress. HEAD: Atraumatic. Normocephalic. EYES: Pupils equal round and reactive. Extraocular motions intact. No scleral icterus. No injection or drainage. ENT: Nose without bleeding, purulent drainage. Airway patent. NECK: Trachea midline. Non tender CARDIOVASCULAR: Regular rate and rhythm without murmurs, gallops, or rubs. RESPIRATORY: Clear to auscultation. Slightly coarse. Breath sounds equal bilaterally. No wheezes, rales, or rhonchi. GASTROINTESTINAL: Abdomen soft, non-tender, nondistended. EXTREMITIES: Moving all extremities, normal gait, no edema noted NEURO: AOx3. SKIN: No rash or erythema of visible areas, no evidence of excoriation Initial Vital Signs Initial Vital Signs: Vital Signs Temperature 97.7 F 01/09/23 17:46 Pulse Rate 65 01/09/23 17:46 Respiratory Rate 20 01/09/23 17:46 Blood Pressure 134/78 01/09/23 17:46 Pulse Oximetry 98 01/09/23 17:46 Oxygen Delivery Method Room Air 01/09/23 17:46 <Francisca Hernandez MD - Last Filed: 01/10/23 01:14> Initial Vital Signs Initial Vital Signs: Vital Signs Temperature 97.7 F 01/09/23 17:46 Pulse Rate 65 01/09/23 17:46 Respiratory Rate 20 01/09/23 17:46 Blood Pressure 134/78 01/09/23 17:46 Pulse Oximetry 98 01/09/23 17:46 Oxygen Delivery Method Room Air 01/09/23 17:46 Course <Feli Maldonado PA-C - Last Filed: 01/09/23 19:40> Orders Ordered: ED Orders 01/09/23 19:33 CBC Auto Diff [Complete Blood Count AUTO DIFF] Stat Discontinued Medications Prednisone (Prednisone 20 Mg Tablet) 40 mg PO NOW ONE Stop: 01/09/23 19:18 Last Admin: 01/09/23 19:24 Dose: 40 mg Documented By: BS Vital Signs Vital signs: Vital Signs - 8 hr 01/09/23 17:46 01/09/23 19:37 Temperature 97.7 F Pulse Rate 65 68 Respiratory Rate 20 18 Blood Pressure 134/78 132/86 Pulse Oximetry 98 98 Oxygen Delivery Method Room Air Room Air <Francisca Hernandez MD - Last Filed: 01/10/23 01:14> Orders Ordered: ED Orders 01/09/23 19:33 CBC Auto Diff [Complete Blood Count AUTO DIFF] Stat Discontinued Medications Prednisone (Prednisone 20 Mg Tablet) 40 mg PO NOW ONE Stop: 01/09/23 19:18 Last Admin: 01/09/23 19:24 Dose: 40 mg Documented By: BS Vital Signs Vital signs: Vital Signs - 8 hr 01/09/23 17:46 01/09/23 19:37 Temperature 97.7 F Pulse Rate 65 68 Respiratory Rate 20 18 Blood Pressure 134/78 132/86 Pulse Oximetry 98 98 Oxygen Delivery Method Room Air Room Air MDM - Allergic Reaction <Feli Maldonado PA-C - Last Filed: 01/09/23 19:40> Differential Diagnosis Differential diagnosis: Likely allergic reaction and other (Flare-up of chronic pruritus) Medical Records Attestation: I reviewed the patient's medical records. Lab Data 01/09/23 19:33 Labs: Lab Results 01/09/23 Range/Units 19:33 WBC 10.3 (4.5-11.0) X10^3/uL RBC 4.90 (4.5-5.9) X10^6/uL Hgb 15.3 (13.5-17.5) g/dL Hct 44.6 (41-53) % MCV 90.9 (80-100) fL MCH 31.2 (26-34) PG MCHC 34.3 (30-36) % RDW 12.5 (11.6-14.8) % Plt Count 255 (150-400) X10^3/uL Neut % (Auto) 49.6 L (50-75) % Lymph % (Auto) 41.2 H (25-40) % [place] % (Auto) 5.8 (3-14) % Eos % (Auto) 1.9 L (2-4) % Baso % (Auto) 1.5 (0-2) % Neut # (Auto) 5100 (3176-1958) /uL Lymph # (Auto) 4200 (0627-7295) /uL [place] # (Auto) 600 (0-900) /uL Eos # (Auto) 200 (0-450) /uL Baso # (Auto) 200 H (0-100) /uL Treatment and Disposition Shared decision making:: Shared decision-making was used in determining plan for this patient plan for outpatient follow up MDM Narrative Medical decision making narrative: This is a well-appearing 57-year-old male with history of chronic pruritus and emphysema/COPD who presents with concern for wanting a course of prednisone for his pruritic symptoms which are flaring up currently. Patient notably just had labs drawn today for his PCP, has had extensive workup on this already and has been dealing with these symptoms for about a year with occasional flare-ups that have required prednisone to control his symptoms. He is not taken prednisone in the last 2-3 months but does take Benadryl typically at night. Discussed this with the patient and hydroxyzine has also been helpful, we will place him on hydroxyzine he is advised not to take this in concert with Benadryl as they are similar medications and this may be too sedating. 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 He is previously had allergy testing done and reports multiple labs over time have been done to evaluate his symptoms of pruritus. He is advised to follow up closely with his primary care provider. On chart review he did have extensive workup for this and has been seen multiple times for similar symptoms. Return precautions provided, follow-up plan discussed, all questions answered. <Francisca Hernandez MD - Last Filed: 01/10/23 01:14> Lab Data Labs: Lab Results 01/09/23 Range/Units 19:33 WBC 10.3 (4.5-11.0) X10^3/uL RBC 4.90 (4.5-5.9) X10^6/uL Hgb 15.3 (13.5-17.5) g/dL Hct 44.6 (41-53) % MCV 90.9 (80-100) fL MCH 31.2 (26-34) PG MCHC 34.3 (30-36) % RDW 12.5 (11.6-14.8) % Plt Count 255 (150-400) X10^3/uL Neut % (Auto) 49.6 L (50-75) % Lymph % (Auto) 41.2 H (25-40) % [place] % (Auto) 5.8 (3-14) % Eos % (Auto) 1.9 L (2-4) % Baso % (Auto) 1.5 (0-2) % Neut # (Auto) 5100 (7229-8082) /uL Lymph # (Auto) 4200 (7871-3946) /uL [place] # (Auto) 600 (0-900) /uL Eos # (Auto) 200 (0-450) /uL Baso # (Auto) 200 H (0-100) /uL Discharge Plan Departure Patient Disposition: Home Clinical Impression: Itching Activity Restrictions/Additional Instructions: *You have been diagnosed with [itching] *What to do: *Please continue to take your regular medications as directed. [To] New medication prescriptions sent to your pharmacy: [Prednisone and hydroxyzine] [ ] New medication written as a paper prescription [ ] No new medications given *Please follow up with your primary care provider in 2-3 days, call for an appointment. Let them know you were seen in the Emergency Department and that we ask that you be seen in follow up. We will electronically transmit a record of today's note if your PCP is in our system. I am glad that you have a new provider who is revisiting your frequent itching symptoms and doing more evaluation of this. After discussion I am willing to prescribe hydroxyzine for you to see if this gets her symptoms better under control as well as a short course of prednisone. As we discussed it is true that steroid medications can be problematic if you use them frequently or in high doses for long periods of time and can have long-term negative impact on your body so I do want you to work with your new primary care provider on looking for other options. As you did just have labs drawn today and you feel your currently in a flare-up I did go ahead and order a CBC so the ear provider can look at your white count result as well. I am not holding you in the emergency department for this result. Hope that your symptoms improve and your feeling better soon *If you do not have a primary care provider please contact the [facility] Resource line at [phone]. They will ask some questions about your medical history and help get you set up with a doctor in the community. *Return to Emergency Department if you should have any new, worsening or concerning symptoms, such as [fever greater than 101 F, shaking chills, worsening pain, persistent vomiting or other bothersome symptoms] Prescriptions: New prednisone 20 mg tablet 40 mg PO DAILY 5 Days Qty: 10 0RF hydroxyzine HCl 50 mg tablet 50 mg PO BEDTIME 14 Days Qty: 14 0RF No Action hydroxyzine HCl 50 mg tablet 50 mg PO QID PRN (Reason: generalized pruritis ) Qty: 30 0RF prednisone 10 mg tablet 10 mg PO DAILY Qty: 10 0RF atorvastatin 10 mg tablet 10 mg PO BEDTIME Qty: 90 1RF cholecalciferol (vitamin D3) 1,250 mcg (50,000 unit) capsule 1,250 mcg PO QWEEK Qty: 12 0RF levothyroxine 25 mcg capsule 25 mcg PO DAILY Qty: 30 3RF xeyrpdrr-aeexoxmzu-AQ 3.5-10,000-1 mg/mL-unit/mL-% drops,suspension 4 drp otic (ear) ONCE PRN (Reason: ear wax) Patient Comments: Reports using 3-5 drops in each ear every evening. hydroxyzine pamoate 25 mg capsule See Rx Instructions PO TID PRN (Reason: pruritis) Qty: 21 0RF Rx Instructions: orally three times a day PRN; gabapentin 300 mg capsule 300 mg PO TID Qty: 30 0RF levalbuterol tartrate [Xopenex HFA] 45 mcg/actuation HFA aerosol inhaler 2 puff inhalation Q4-6H PRN (Reason: Bronchospasm) nitroglycerin 0.4 mg tablet, sublingual 0.4 mg sublingual Q5-15M PRN (Reason: Chest Pain) Rx Instructions: do not exceed 3 doses per episode aspirin 81 mg tablet,delayed release (DR/EC) 81 mg PO DAILY Referrals: Rena Lopez PA-C [Primary Care Provider] - Stand Alone Forms: Patient Portal/API ED Sign-out <Francisca Hernandez MD - Last Filed: 01/10/23 01:14> Cosign ED Attending Cosignature Attestation: I was immediately available in the department for consultation throughout this patient's visit. Francisca Hernandez MD
[2023-01-09] MEDS: predniSONE 20 MG TABLET 40 MG PO (19:24)
[2023-01-09 19:37] VITALS: BP 132/86; PULSE 68; RESP 18; O2SAT 98
[2023-01-09 19:54] LABS: Add Manual Diff / Slide Review NO; Basophils Absolute Auto 200 /uL (0-100); Basophils Percent Auto 1.5 % (0-2); Eosinophils Absolute Auto 200 /uL (0-450); Eosinophils Percent Auto 1.9 % (2-4); Hematocrit 44.6 % (41-53); Hemoglobin 15.3 g/dL (13.5-17.5); Lymphocytes Absolute Auto 4200 /uL (1100-4500); Lymphocytes Percent Auto 41.2 % (25-40); Mean Corpuscular HGB Conc 34.3 % (30-36); Mean Corpuscular Hemoglobin 31.2 PG (26-34); Mean Corpuscular Volume 90.9 fL (80-100); Monocytes Absolute Auto 600 /uL (0-900); Monocytes Percent Auto 5.8 % (3-14); Neutrophils Absolute Auto 5100 /uL (1500-7000); Neutrophils Percent Auto 49.6 % (50-75); Platelet Count 255 X10^3/uL (150-400); Red Cell Distribution Width 12.5 % (11.6-14.8); White Blood Cell Count 10.3 X10^3/uL (4.5-11.0)
== END 2023-01-09 19:38 | disposition home or self-care (01) ==
PROVIDERS: Emergency Provider Student in an Organized Health Care Education/Training Program; PCP Physician Assistant
DX: L29.9 Pruritus, unspecified (principal); J43.9 Emphysema, unspecified; E88.810 Metabolic syndrome; E78.41 Elevated Lipoprotein(a); E03.9 Hypothyroidism, unspecified; I22.1 Subsequent ST elevation (STEMI) myocardial infarction of inferior wall; Z13.0 Encounter for screening for diseases of the blood and blood-forming organs and certain disorders involving the immune mechanism; Z13.1 Encounter for screening for diabetes mellitus; Z13.228 Encounter for screening for other metabolic disorders; Z95.5 Presence of coronary angioplasty implant and graft
CPT/HCPCS: 36415; 82306; 83036; 83090; 84255; 84550; 84630; 85025; 86140; 99283

== ENCOUNTER → 2023-03-20 11:44 | Outpatient (CLI) | payer OTHER, MEDICAID, SELFPAY | LOC: RESP 11:44 | PROVIDERS: PCP Physician Assistant; Referring Provider Internal Medicine Critical Care Medicine; Visit Provider Internal Medicine Critical Care Medicine | DX: J44.9 Chronic obstructive pulmonary disease, unspecified (principal); Z87.891 Personal history of nicotine dependence | CPT/HCPCS: 94060; 94726; 94729 ==

== ENCOUNTER → 2023-03-31 13:31 | Outpatient (CLI) | payer OTHER, MEDICAID, SELFPAY ==
--- NOTE | 2023-03-31 13:31 | DI.CT.S_ITS ---
PROCEDURE: CT LUNG LOW DOSE SCREENING INDICATIONS: lung cancer scrreing TECHNIQUE: Noncontrast 2.0-2.5 mm thick sections acquired from the pulmonary apices to the posterior costophrenic angles. 7 mm thick axial MIP, and 5 mm coronal and sagittal reformats were then acquired. For radiation dose reduction, the following was used: automated exposure control, adjustment of mA and/or kV according to patient size. COMPARISON: [facility], CT, CT ABDOMEN WWO PELVIS W, 09/10/2022, 11:32. No prior report available only prior images. FINDINGS: Image quality: Diagnostic. Lower Neck: No enlarged lymph nodes. Thyroid: No thyroid nodules which require sonographic follow up, per consensus guidelines. Axillae: No enlarged lymph nodes. Chest Wall: Unremarkable. Bones: Unremarkable. Lungs and Pleura: Severe emphysematous and cystic lung changes with large blebs at the apices. No pneumothorax or pleural effusions. No consolidation or suspicious nodules. Heart: Heart size is normal. No pericardial effusion. Scattered coronary calcifications. Thoracic Vessels: The aorta and pulmonary arteries demonstrate normal size. Mediastinum and [place]: No enlarged lymph nodes. Esophagus: No wall thickening. No hiatal hernia. Upper Abdomen: Minimal diverticulosis. IMPRESSION: No suspicious pulmonary nodules. LUNG-RADS 1; continued annual screening, if eligible. Clinically Significant Non-pulmonary Findings: Diverticulosis without evidence of diverticulitis in the partially visualized upper abdomen. Dictated by: Rikki Roach M.D. on 03/31/2023 at 19:03 Approved by: Rikki Roach M.D. on 04/01/2023 at 11:56
== END ==
LOC: CT 13:31
PROVIDERS: PCP Physician Assistant; Referring Provider Internal Medicine Critical Care Medicine; Visit Provider Internal Medicine Critical Care Medicine
DX: Z12.2 Encounter for screening for malignant neoplasm of respiratory organs (principal); Z87.891 Personal history of nicotine dependence
CPT/HCPCS: 71271

== ENCOUNTER 2024-02-27 12:10 | Emergency (ER) | payer OTHER, SELFPAY ==
[2024-02-27 12:24] VITALS: BP 129/74; PULSE 70; RESP 20; TEMP 36.6; O2SAT 98; BMI 27.1
--- NOTE | 2024-02-27 12:28 | DI.RAD.S_ITS ---
PROCEDURE: XR CHEST 1V INDICATIONS: Shortness of breath TECHNIQUE: One view of the chest was acquired. COMPARISON: [facility] ([place]), CR, XR CHEST 2V, 07/02/2022, 14:09. [facility], CR, XR CHEST 2V, 07/21/2018, 9:12. FINDINGS: Surgical changes and devices: None. Lungs and pleura: Lungs are clear. No pleural effusions or pneumothorax. Mediastinum: Mediastinal contours appear normal. Heart size is normal. Bones and chest wall: No suspicious bony lesions. Overlying soft tissues appear unremarkable. IMPRESSION: No acute cardiothoracic process. Dictated by: Jd Cotton M.D. on 02/27/2024 at 13:25 Approved by: Jd Cotton M.D. on 02/27/2024 at 13:25
--- NOTE | 2024-02-27 16:17 | PC.NURSE ---
lab called for patient 1500. No answer unable to locate patient again
== END 2024-02-27 16:19 | disposition left against medical advice (07) ==
PROVIDERS: Emergency Provider Emergency Medicine; PCP Physician Assistant
DX: R05.9 Cough, unspecified (principal)
CPT/HCPCS: 71045; 99281

== ENCOUNTER → 2024-05-26 08:58 | Outpatient (CLI) | payer OTHER, SELFPAY ==
--- NOTE | 2024-05-26 08:59 | DI.CT.S_ITS ---
PROCEDURE: CT LUNG LOW DOSE SCREENING INDICATIONS: lung cance screeing TECHNIQUE: Noncontrast 2.0-2.5 mm thick sections acquired from the pulmonary apices to the posterior costophrenic angles. 7 mm thick axial MIP, and 5 mm coronal and sagittal reformats were then acquired. For radiation dose reduction, the following was used: automated exposure control, adjustment of mA and/or kV according to patient size. COMPARISON: [facility], CT, CT LUNG LOW DOSE SCREENING, 03/31/2023, 13:38. FINDINGS: Image quality: Diagnostic Lungs and pleura: Moderate emphysema. Bibasal atelectasis. Large bullous seen on the left. No suspicious pulmonary nodules. No airspace consolidation or pleural effusion Mediastinum, heart, and esophagus: Coronary calcifications. Normal heart size. No pathologic lymph nodes by size criteria. Unremarkable esophagus Chest wall and thyroid: Unremarkable Upper abdomen: No gross abnormality on these low-dose noncontrast images Bones: No aggressive appearing osseous abnormality. IMPRESSION: No suspicious pulmonary nodules. LUNG-RADS 1; continued annual screening, if eligible. Clinically Significant Non-pulmonary Findings: Coronary calcifications. Dictated by: Godwin Arreaga M.D. on 05/26/2024 at 15:12 Approved by: Godwin Arreaga M.D. on 05/26/2024 at 15:15
== END ==
PROVIDERS: PCP Physician Assistant; Referring Provider Internal Medicine Critical Care Medicine; Visit Provider Internal Medicine Critical Care Medicine
DX: Z87.891 Personal history of nicotine dependence (principal); Z12.2 Encounter for screening for malignant neoplasm of respiratory organs; J43.9 Emphysema, unspecified; I25.10 Atherosclerotic heart disease of native coronary artery without angina pectoris
CPT/HCPCS: 71271

== ENCOUNTER → 2024-09-28 15:59 | Outpatient (CLI) | payer OTHER, SELFPAY ==
[2024-09-28 16:26] LABS: Add Manual Diff / Slide Review NO; Hematocrit 44.0 % (41-53); Hemoglobin 15.5 g/dL (13.5-17.5); Lymphocytes Absolute Auto 3100 /uL (1100-4500); Mean Corpuscular HGB Conc 35.3 % (30-36); Mean Corpuscular Hemoglobin 32.7 PG (26-34); Mean Corpuscular Volume 92.6 fL (80-100); Platelet Count 237 X10^3/uL (150-400)
[2024-09-28 16:41] LABS: Hemoglobin A1C% w Est Avg Glu 5.6 % (4.0-6.0)
[2024-09-28 17:03] LABS: HEMOLYSIS < 15 (0-50); Iron 124 ug/dL (49-181)
[2024-09-28 17:05] LABS: Alanine Aminotransferase 34 IU/L (<50); Albumin 4.7 g/dL (3.5-5.0); Albumin Globulin Ratio 1.7 (1.0-2.8); Alkaline Phosphatase 69 U/L (38-126); Blood Urea Nitrogen 19 mg/dL (9-20); Calcium 9.5 mg/dL (8.4-10.2); Carbon Dioxide 26 mmol/L (22-32); Chloride 105 mmol/L (98-107); Cholesterol 165 mg/dL (140-199); Estimated Glomerular Filt Rate > 60 mL/min (>60); Globulin 2.8 g/dL (1.7-4.1); Glucose 81 mg/dL (70-99); HDL Cholesterol 37 mg/dL (40-60); HEMOLYSIS 22 (0-50); Potassium 4.4 mmol/L (3.4-5.1); Sodium 138 mmol/L (137-145); Total Protein 7.5 g/dL (6.3-8.2); Triglycerides 221 mg/dL (35-150)
[2024-09-28 17:16] LABS: Percent Iron Saturation 36 % (20-50); Total Iron Binding Capacity 341 ug/dL (261-462); Transferrin 268 mg/dL (206-381)
[2024-09-28 17:23] LABS: Vitamin D 25 Hydroxy (D3) 43.6 ng/mL (30.0-100.0)
[2024-09-28 17:36] LABS: Thyroid Stimulating Hormone 1.40 uIU/mL (0.47-4.68)
[2024-09-28 17:39] LABS: Ferritin 82 ng/mL (18-464)
== END ==
PROVIDERS: PCP Family Medicine; Referring Provider Family Medicine; Visit Provider Family Medicine
DX: R07.9 Chest pain, unspecified (principal); R53.82 Chronic fatigue, unspecified; I25.2 Old myocardial infarction; I25.10 Atherosclerotic heart disease of native coronary artery without angina pectoris; Z95.5 Presence of coronary angioplasty implant and graft; E55.9 Vitamin D deficiency, unspecified; I25.119 Atherosclerotic heart disease of native coronary artery with unspecified angina pectoris; R74.8 Abnormal levels of other serum enzymes; Z13.1 Encounter for screening for diabetes mellitus; E78.2 Mixed hyperlipidemia; Z12.5 Encounter for screening for malignant neoplasm of prostate; E78.5 Hyperlipidemia, unspecified; L50.8 Other urticaria; R53.83 Other fatigue
CPT/HCPCS: 36415; 80053; 80061; 82306; 82728; 83036; 83540; 83550; 84443; 85025; G0103